=== PATIENT | female | born 1950 | race Caucasian/White ===

== ENCOUNTER 2021-08-22 14:30 | Outpatient (CLI) | payer MEDICARE, SELFPAY ==
--- NOTE | ~2021-08-22 | US_ITS ---
EXAMINATION: US venous doppler [facility] DATE: 08/22/2021 16:12 INDICATION: Bilateral lower limb pain and swelling TECHNIQUE: Grayscale ultrasound images without and with compression and Doppler ultrasound images of the bilateral lower extremity veins were obtained. COMPARISON: None. FINDINGS: The visualized portions of right common femoral vein, profunda (deep) femoral vein, femoral vein, pop liteal vein, posterior tibial veins, peroneal veins, gastrocnemius vein, lesser saphenous vein and gr eater saphenous vein outflow are patent. The visualized portions of left common femoral vein, profunda femoral vein, femoral vein, popliteal v ein, posterior tibial veins, peroneal veins, gastrocnemius vein, lesser saphenous vein and greater sa phenous vein outflow are patent. IMPRESSION: 1. No deep venous thrombosis in either lower limb. Reviewed, dictated and finalized at location B.
== END 2021-08-22 14:31 | disposition home or self-care (01) ==
PROVIDERS: PCP Family Medicine; Visit Provider Family Medicine
DX: R22.43 Localized swelling, mass and lump, lower limb, bilateral (principal)
CPT/HCPCS: 93970

== ENCOUNTER 2023-09-04 10:28 | Emergency (ER) | payer MEDICARE, SELFPAY ==
--- NOTE | ~2023-09-04 | CT_ITS ---
EXAMINATION: CT cervical spine wo con DATE: 09/04/2023 11:05 INDICATION: Neck pain after fall TECHNIQUE: Computed tomography (CT) of the cervical spine was performed without intravenous contrast. The dose-length product was 372 mGy-cm. Automated exposure control and iterative reconstruction tech nique were employed. COMPARISON: None FINDINGS: There is disc narrowing and endplate hypertrophy at all cervical spine levels most pronounc ed at C5-6, C6-7 and C7-T1. There is degenerative anterolisthesis at C4-5 and C7-T1. No evidence for perched facet. Odontoid process is unremarkable with degenerative change. There is severe degenerativ e change of the uncinate and facet joints of the mid and lower cervical spine. No acute fracture or t raumatic malalignment. Lung apices are normal. IMPRESSION: 1. No acute fracture. 2: Severe cervical spondylosis. Reviewed, dictated and finalized at location A.
--- NOTE | ~2023-09-04 | XR_ITS ---
XR humerus RT 09/04/2023 11:10 Indication: Hematoma of the arm. Arm swelling. Procedure: 2 views right humerus Comparison: No prior studies for comparison. Findings: No fracture, subluxation or dislocation. There is a loose body medial to the elbow joint. 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 No acute fracture or traumatic malalignment. Mild soft tissue swelling lateral to the humerus proximally. Impression: 1: No acute fracture. Reviewed, dictated and finalized at location A. Impression: 1: No acute fracture.
--- NOTE | ~2023-09-04 | CT_ITS ---
EXAMINATION: CT brain wo con DATE: 09/04/2023 11:05 INDICATION: Trauma. Head injury. TECHNIQUE: Computed tomography (CT) of the head was performed without intravenous contrast. The dose- length product was 605.33 mGy-cm. Automated exposure control and iterative reconstruction technique w ere employed. COMPARISON: None FINDINGS: No acute intracranial hemorrhage, infarction, mass or mass effect. No ventriculomegaly or m idline shift. Basilar cisterns are patent. Paranasal sinuses and mastoids are pneumatized. No depress ed skull fractures. There are scattered mild periventricular and subcortical white matter changes, mo st likely related to small vessel ischemic disease (microangiopathy). IMPRESSION: 1. No acute intracranial abnormality. Reviewed, dictated and finalized at location A.
[2023-09-04 10:35] VITALS: BP 155/72; PULSE 81; RESP 18; TEMP 36.6; O2SAT 100
--- NOTE | 2023-09-04 11:06 | ED.FALL ---
HPI - Fall General Chief Complaint: Fall Stated Complaint: fall with pain to right arm/shoulder Time Seen by Provider: 09/04/23 10:44 History of Present Illness HPI Narrative: Patient states she has tripped in the bathroom and fell, hitting her head on the back, and injuring her right arm, which is quite uncomfortable especially around the shoulder. No focal numbness or weakness. No loss of consciousness, nausea vomiting. She is on baby aspirin Related Data Home Medications Medication Instructions Recorded Confirmed aspirin 325 mg tablet 325 mg PO .COMPLEX 12/03/21 03/11/23 Allergies Allergy/AdvReac Type Severity Reaction Status Date / Time tramadol Allergy Severe Vomiting Verified 09/04/23 10:39 celecoxib Allergy Unknown Itching Verified 09/04/23 10:39 Review of Systems Review of Systems: All systems reviewed & are unremarkable except as noted in HPI and below PMFSH Past Medical History Medical History Anxiety Breast lump Diabetes Encounter for immunization HLD (hyperlipidemia) Hypertension Kidney stones (~2008) Normal colonoscopy DUE TIA (transient ischemic attack) Surgical History Surgical History Hx of cholecystectomy Hx of tonsillectomy Family History Family History Sibling Family history of kidney disease Family history of malignant neoplasm of brain Father Hypertension Family history of heart disease in male family member before age 55 Mother Hypertension Family history of diabetes mellitus in first degree relative Family history of emphysema Patient's mother is Other Cerebrovascular accident Diabetes mellitus Family history of coronary artery disease Social History Social History Smoking status: Never smoker Second hand tobacco smoke exposure: Yes Alcohol intake: never Substance use: never Substance use type: does not use Lack of Transportation: No Lack of Food: Never True Current Housing: I Have Housing Concerned About Future Housing: No Difficulty Paying Gas/Electric Bills: No Difficulty Paying for Meds: YES Currently Unemployed: No Education: High School Diploma/GED Living arrangements: with family Occupation/Education: retired Gender identity (if verbalized by the patient): Female Exam Narrative: EXAMINATION OF ORGAN SYSTEMS/BODY AREAS: Constitutional: Vital signs per nursing GENERAL:[No acute distress, non-toxic appearing.] HEAD: Slight tenderness to posterior scalp NECK: No midline tenderness EYES: EOMI, conjunctiva normal ENT: Hearing grossly intact LUNGS: Nonlabored breathing. HEART: [Regular rate and rhythm], normal pulses ABD: [Soft], [nontender to palpation] EXT: Diffuse swelling and bruising and tenderness to the right upper arm SKIN: Bruising as above NEURO: [Alert and oriented x 3. No gross focal sensory or strength deficits.] PSYCH: Normal affect Course Vital Signs Vital signs: Vital Signs Temperature 97.9 F 09/04/23 10:35 Pulse Rate 81 09/04/23 10:35 Respiratory Rate 18 09/04/23 10:35 Blood Pressure 155/72 H 09/04/23 10:35 Pulse Oximetry 100 09/04/23 10:35 Oxygen Delivery Room Air 09/04/23 10:35 Temperature 97.9 F 09/04/23 10:35 Pulse Rate 81 09/04/23 10:35 Respiratory Rate 18 09/04/23 10:35 Blood Pressure 155/72 H 09/04/23 10:35 Pulse Oximetry 100 09/04/23 10:35 Oxygen Delivery Room Air 09/04/23 10:35 MDM - Fall MDM Narrative Medical decision making narrative: She presents after mechanical fall with head injury, she has impressive swelling and bruising to her right upper arm/humerus, she has full normal range of motion to extension/flexion at her elbow, and abduction and adduction to her shoulder. Travis
== END 2023-09-04 11:47 | disposition home or self-care (01) ==
PROVIDERS: Emergency Provider Emergency Medicine; PCP Family Medicine
DX: S40.021A Contusion of right upper arm, initial encounter (principal); S09.90XA Unspecified injury of head, initial encounter; I10 Essential (primary) hypertension; E11.9 Type 2 diabetes mellitus without complications; E78.5 Hyperlipidemia, unspecified; Z87.442 Personal history of urinary calculi; Z86.73 Personal history of transient ischemic attack (TIA), and cerebral infarction without residual deficits; Z90.49 Acquired absence of other specified parts of digestive tract; Z79.82 Long term (current) use of aspirin; Z79.84 Long term (current) use of oral hypoglycemic drugs; Z79.85 Long-term (current) use of injectable non-insulin antidiabetic drugs; W01.198A Fall on same level from slipping, tripping and stumbling with subsequent striking against other object, initial encounter
CPT/HCPCS: 70450; 72125; 73060; 99284